=== PATIENT | male | born 1965 | race Asian ===

== ENCOUNTER 2016-09-12 12:11 | Emergency (ER) | payer OTHER ==
[~2016-09-12] VITALS: Ht 200.7 cm; Wt 115.7 kg
[2016-09-12] MEDS ORDERED: RISP2TAB2 PO (12:35)
[2016-09-12] MEDS ORDERED: ZANTAC 75 PO (12:35)
[2016-09-12] MEDS ORDERED: LISI20TA11 PO (12:36)
[2016-09-12 12:56] LABS: PLATELET COUNT 266 K/uL (142-355)
[2016-09-12 13:11] LABS: POTASSIUM 3.9 mmol/L (3.6-5.2); SODIUM 127 mmol/L (136-145)
[2016-09-12 13:13] LABS: PARTIAL THROMBOPLASTIN TIME 29.5 SECONDS (24.5-33.6)
[2016-09-13 09:57] LABS: POTASSIUM 4.3 mmol/L (3.6-5.2); SODIUM 141 mmol/L (136-145)
[2016-09-18 12:27] VITALS: BP 122/71; TEMP 98.1
== END 2016-09-18 12:29 | disposition other institution (70) ==
LOC: ED 12:11
DX: T54.92XA Toxic effect of unspecified corrosive substance, intentional self-harm, initial encounter (principal); F32.89 Other specified depressive episodes; R00.1 Bradycardia, unspecified
CPT/HCPCS: 36415; 80048; 80053; 80307; 80320; 80329; 81000; 82550; 84484; 85027; 85610; 85730; 93005; 96360; 99285; G0479; J1630; J1953; J2060